=== PATIENT | female | born 1935 | race Caucasian/White ===

== ENCOUNTER → 2017-11-25 | Outpatient (CLI) | payer MEDICARE, OTHER ==
[~2017-11-25] MED LIST: ASPI-587 PO; CHOLESTEROL MED PO; LEVO75TA57 PO; METO25TA4 PO; MULT-974 PO; OMEG1CAP51 PO; OSCAL PO; PRAV10TA PO; THYROID PO
== END ==
LOC: WOUNDCARE 13:31
PROVIDERS: ATTEND Nurse Practitioner
DX: L97.212 Non-pressure chronic ulcer of right calf with fat layer exposed (principal); L03.115 Cellulitis of right lower limb
CPT/HCPCS: 11042

== ENCOUNTER → 2017-11-30 | Outpatient (CLI) | payer MEDICARE, OTHER | LOC: WOUNDCARE 09:54 | PROVIDERS: ATTEND Nurse Practitioner | DX: L97.212 Non-pressure chronic ulcer of right calf with fat layer exposed (principal); L03.115 Cellulitis of right lower limb | CPT/HCPCS: 11042 ==

== ENCOUNTER → 2017-12-07 | Outpatient (CLI) | payer MEDICARE, OTHER | LOC: WOUNDCARE 09:47 | PROVIDERS: ATTEND Nurse Practitioner | DX: L97.212 Non-pressure chronic ulcer of right calf with fat layer exposed (principal); L03.115 Cellulitis of right lower limb | CPT/HCPCS: 11042 ==

== ENCOUNTER → 2017-12-14 | Outpatient (CLI) | payer MEDICARE, OTHER | LOC: WOUNDCARE 09:57 | PROVIDERS: ATTEND Nurse Practitioner | DX: L97.212 Non-pressure chronic ulcer of right calf with fat layer exposed (principal); L03.115 Cellulitis of right lower limb | CPT/HCPCS: 99212 ==

== ENCOUNTER 2018-04-22 10:26 | Emergency (ER) | payer OTHER, MEDICARE ==
[~2018-04-22] VITALS: Ht 165.1 cm; Wt 59.0 kg
--- OUTSIDE RECORDS SUMMARY | 2018-04-22 10:32 | XMS REPORT | Continuity of Care Document ---
Author Author [facility] Organization [facility] Address Unknown Phone Unavailable Allergies Active Description Code Type Severity Reaction Onset Reported/Identified Relationship to Patient Clinical Status Yes No Known Drug Allergies [id number] Drug Allergy Unknown N/A 10/14/2014 Medications There is no data. Problems Date Dx Coded Attending Type Code Diagnosis Diagnosed By 10/15/2014 CALLUM PIERRE MD Ot 244.9 10/15/2014 CALLUM PIERRE MD Ot 272.4 10/15/2014 CALLUM PIERRE MD Ot 401.9 10/15/2014 CALLUM PIERRE MD Ot 716.90 10/15/2014 CALLUM PIERRE MD Ot 785.0 10/15/2014 CALLUM PIERRE MD Ot 786.50 11/26/2017 WOODY SOLIS APRN Ot L03.115 CELLULITIS OF RIGHT LOWER LIMB 11/26/2017 WOODY SOLIS APRN Ot L97.212 NON-PRESSURE CHRONIC ULCER OF RIGHT CALF 12/01/2017 WOODY SOLIS APRN Ot L03.115 CELLULITIS OF RIGHT LOWER LIMB 12/01/2017 WOODY SOLIS [employer] FRY Ot L97.212 NON-PRESSURE CHRONIC ULCER OF RIGHT CALF 12/01/2017 WOODY SOLIS [employer] FRY Ot L03.115 CELLULITIS OF RIGHT LOWER LIMB 12/01/2017 WOODY SOLIS APRN Ot L97.212 NON-PRESSURE CHRONIC ULCER OF RIGHT CALF 12/08/2017 WOODY SOLIS APRN Ot L03.115 CELLULITIS OF RIGHT LOWER LIMB 12/08/2017 WOODY SOLIS APRN Ot L97.212 NON-PRESSURE CHRONIC ULCER OF RIGHT CALF 12/15/2017 WOODY SOLIS APRN Ot L03.115 CELLULITIS OF RIGHT LOWER LIMB 12/15/2017 WOODY SOLIS [employer] FRY Ot L97.212 NON-PRESSURE CHRONIC ULCER OF RIGHT CALF 12/15/2017 WOODY SOLIS D[employer] FRY Ot L03.115 CELLULITIS OF RIGHT LOWER LIMB 12/15/2017 IRMASABAReyna Ng D[employer] FRY Ot L97.212 NON-PRESSURE CHRONIC ULCER OF RIGHT CALF 12/31/2017 IRMA WOODY Ng [employer] FRY Ot L03.115 CELLULITIS OF RIGHT LOWER LIMB 12/31/2017 IRMA WOODY R [employer] FRY Ot L97.212 NON-PRESSURE CHRONIC ULCER OF RIGHT CALF 12/31/2017 IRMA WOODY R [employer] FRY Ot L03.115 CELLULITIS OF RIGHT LOWER LIMB 12/31/2017 IRMA WOODY R [employer] FRY Ot L97.212 NON-PRESSURE CHRONIC ULCER OF RIGHT CALF 01/03/2018 IRMA WOODY R [employer] FRY Ot L03.115 CELLULITIS OF RIGHT LOWER LIMB 01/03/2018 IRMA WOODY R D[employer] FRY Ot L97.212 NON-PRESSURE CHRONIC ULCER OF RIGHT CALF 01/03/2018 IRMA WOODY R D[employer] FRY Ot L03.115 CELLULITIS OF RIGHT LOWER LIMB 01/03/2018 IRMA WOODY R [employer] FRY Ot L97.212 NON-PRESSURE CHRONIC ULCER OF RIGHT CALF 01/06/2018 WOODY SOLIS D[employer] FRY Ot L03.115 CELLULITIS OF RIGHT LOWER LIMB 01/06/2018 IRMA WOODY R D[employer] FRY Ot L97.212 NON-PRESSURE CHRONIC ULCER OF RIGHT CALF Procedures There is no data. Results There is no data. Encounters ACCT No. Visit Date/Time Discharge Status Pt. Type Provider Facility Loc./Unit Complaint [id number] 12/14/2017 09:57:00 12/14/2017 23:59:59 CLS Outpatient WOODY SOLIS APRN [facility] [id number] 12/07/2017 09:47:00 12/07/2017 23:59:59 CLS Outpatient WOODY SOLIS [employer] FRY [facility] [id number] 11/30/2017 09:54:00 11/30/2017 23:59:59 CLS Outpatient WOODY SOLIS [employer] FRY [facility] [id number] 11/25/2017 13:31:00 11/25/2017 23:59:59 CLS Outpatient WOODY SOLIS [employer] FRY [facility] [id number] 10/14/2014 12:45:00 10/15/2014 18:32:00 DIS Inpatient IGNACIO MCCORMICK, CALLUM Willson [id number] 10/20/2014 11:08:39 ACT Document Registration
[2018-04-22] MEDS ORDERED: fentaNYL INJECTION 100 MCG/2 ML AMP IVP ONE ×2 (10:45→11:45)
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
[2018-04-22 10:52] LABS: HEMOGLOBIN 13.2 G/DL (11.5-16.0); MEAN PLATELET VOLUME 11.2 FL (7.4-10.4); RED BLOOD COUNT 4.21 10^6/uL (4.35-5.85); RED CELL DISTRIBUTION WIDTH 13.7 % (10.0-14.5); WHITE BLOOD COUNT 18.1 10^3/uL (4.3-11.0)
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
[2018-04-22] MEDS ORDERED: IOHEXOL 350 MG/ML 100 ML (OMNIPAQUE 350) VIAL IV ONE (11:00)
[2018-04-22] MEDS ORDERED: NS 250 ML (IVPB) BAG IV ONE (11:00)
[2018-04-22 11:04] LABS: ALANINE AMINOTRANSFERASE 37 U/L (0-55); ALBUMIN 3.6 GM/DL (3.2-4.5); ALKALINE PHOSPHATASE 83 U/L (40-136); BILIRUBIN,DIRECT 0.4 MG/DL (0.0-0.3); BILIRUBIN,INDIRECT 0.8 MG/DL; BILIRUBIN,TOTAL 1.2 MG/DL (0.1-1.0); BUN/CREATININE RATIO 22; CALCIUM 9.1 MG/DL (8.5-10.1); CARBON DIOXIDE 24 MMOL/L (21-32); CHLORIDE 107 MMOL/L (98-107); CREATININE SERUM 0.72 MG/DL (0.60-1.30); GFR ESTIMATED > 60; GLUCOSE 134 MG/DL (70-105); POTASSIUM 3.8 MMOL/L (3.6-5.0); SODIUM 140 MMOL/L (135-145); TOTAL PROTEIN 6.1 GM/DL (6.4-8.2)
[2018-04-22] MEDS ORDERED: ONDANSETRON 4 MG/2 ML (SDV) Z0FRAN ONE ×2 (11:05→13:16)
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
[2018-04-22] MEDS ORDERED: KETOROLAC 30 MG/ML VIAL IVP ONE (11:45)
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
[2018-04-22 12:27] LABS: BILIRUBIN,URINE NEGATIVE (NEGATIVE); CLARITY,URINE CLEAR; COLOR,URINE YELLOW; GLUCOSE, URINE (UA) NEGATIVE (NEGATIVE); KETONES,URINE NEGATIVE (NEGATIVE); LEUKOCYTE ESTERASE ,URINE 1+ (NEGATIVE); NITRITE,URINE NEGATIVE (NEGATIVE); PH,URINE 8 (5-9); PROTEIN,URINE NEGATIVE (NEGATIVE); UROBILINOGEN,URINE NORMAL (NORMAL)
[2018-04-22 12:39] LABS: BACTERIA,URINE TRACE /HPF; SQUAMOUS EPITHELIAL CELL,UR 0-2 /HPF; WBC,URINE RARE /HPF
[2018-04-22] MEDS ORDERED: LIDOCAINE 2% 20 ML (XYLOCAINE) VIAL INJ ONE (13:15)
[2018-04-22] MEDS ORDERED: ACETAMINOPHEN 500 MG TAB (TYLENOL) PO ONE (13:15)
[2018-04-22] MEDS ORDERED: LIDOCAINE BOLUS 100 MG/5 ML (IMS) SYR ONE (13:20)
[2018-04-22] MEDS ORDERED: NS (IVPB) 100 ML ONE ×2 (13:20→14:07)
[2018-04-22] MEDS ORDERED: ONDANSETRON 4 MG/2 ML (SDV) Z0FRAN IVP ONE ×2 (13:30→14:30)
[2018-04-22] MEDS ORDERED: NS IV 1000 ML 1,000 ML IV SCH (14:15)
[2018-04-22] MEDS ORDERED: LIDOCAINE 1% INJ 20 ML 20 ML VIAL INJ ONE (14:15)
[2018-04-22 14:50] VITALS: BP 127/64
== END 2018-04-22 14:50 | disposition short-term general hospital (02) ==
LOC: EDUNIT# 10:26 → ER 10:28
DX: S32.502A Unspecified fracture of left pubis, initial encounter for closed fracture (principal); S32.10XA Unspecified fracture of sacrum, initial encounter for closed fracture; S36.039A Unspecified laceration of spleen, initial encounter; S27.321A Contusion of lung, unilateral, initial encounter; E78.00 Pure hypercholesterolemia, unspecified; E03.9 Hypothyroidism, unspecified; Z79.82 Long term (current) use of aspirin; Z82.49 Family history of ischemic heart disease and other diseases of the circulatory system; Z90.710 Acquired absence of both cervix and uterus; V43.52XA Car driver injured in collision with other type car in traffic accident, initial encounter
CPT/HCPCS: 36415; 70450; 71045; 71260; 72125; 72131; 72170; 74177; 80048; 80076; 80320; 81000; 85027; 86850; 86900; 86901; 93041; 96361; 96374; 96375; 96376

== ENCOUNTER 2022-04-24 20:35 | Emergency (ER) | payer MEDICARE, OTHER ==
[~2022-04-24] VITALS: Ht 160 cm; Wt 61.2 kg
--- NOTE | 2022-04-24 21:16 | ED Upper Extremity ---
General Chief Complaint: Upper Extremity Stated Complaint: R MIDDLE FINGER SWOLLEN, R ARM PAIN, FELL Source: patient Exam Limitations: no limitations History of Present Illness Date Seen by Provider: Apr 24, 2022 Time Seen by Provider: 21:14 Initial Comments Patient is a 86-year-old female who presents the ED with right hand pain. Mike liang fell 30 minutes ago. She was walking on the sidewalk after getting out of the car when she tripped and fall landing on her hands and knees. She denies syncope or loss of consciousness. She has bruising swelling to the right middle finger with pain with movement. She denies hitting her head, neck pain, or on blood thinners. She denies of any chest pain, abdominal pain or back pain. Only complaint is right middle finger pain. She did suffer abrasion to her right anterior knee but denies of any pain or discomfort with walking. She has been walking according to family at bedside. Allergies and Home Medications Allergies Coded Allergies: No Known Drug Allergies (Unverified , 10/14/14) Patient Home Medication List Home Medication List Reviewed: Yes Aspirin (Aspir 81) 81 Mg Tablet.dr, 81 MG PO DAILY, (Reported) Entered as Reported by: YANI WARE on 10/14/14 1158 Docosahexanoic Acid/Epa (Fish Oil 1,000 Mg Softgel) 1 Cap Capsule, 1 CAP PO UD Prescribed by: ED MARS on 10/14/14 162 Levothyroxine Sodium (Synthroid) 75 Mcg Tablet, 1 EACH PO DAILY Prescribed by: ED MARS on 10/14/14 162 Metoprolol Succinate (Toprol Xl) 25 Mg Tab.sr.24h, 25 MG PO DAILY Prescribed by: CALLUM PIERRE on 10/15/14 1701 Multivitamin (Multi Vitamin Daily) 1 Each Tablet, 1 EACH PO DAILY Prescribed by: ED MARS on 10/14/14 162 Pravastatin Sodium (Pravastatin Sodium) 10 Mg Tablet, 20 MG PO HS Prescribed by: ED MARS on 10/14/14 1640 [Oscal] , 2 TAB PO DAILY Prescribed by: ED MARS on 10/14/14 162 Review of Systems Constitutional: No chills, No diaphoresis, No malaise, No weakness EENTM: No blurred vision, No double vision Respiratory: No cough, No dyspnea on exertion Cardiovascular: No chest pain Gastrointestinal: No abdominal pain, No diarrhea Genitourinary: No decreased output, No discharge Musculoskeletal: joint pain, joint swelling, muscle pain Skin: change in color All Other Systems Reviewed Negative Unless Noted: Yes Past Tpmjjwk-Tbznjy-Uwrhxl Hx Immunizations Up To Date Tetanus Booster (TDap): Less than 5yrs PED Vaccines UTD: No Seasonal Allergies Seasonal Allergies: No Past Medical History Surgeries: Yes (ARTHROSCOPY) Bladder Surgery, Hysterectomy Respiratory: No Cardiac: No High Cholesterol Neurological: No Reproductive Disorders: No 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 0.00oz. 58.389187ht; 21.09 BMI Method:Stated General Appearance: WD/WN, no apparent distress HEENT: PERRL/EOMI, normal ENT inspection, TMs normal Neck: non-tender, full range of motion, supple, normal inspection Cardiovascular: regular rate, rhythm, no edema, no gallop, no JVD Respiratory: chest non-tender, lungs clear, normal breath sounds, no respiratory distress Gastrointestinal: normal bowel sounds, non tender, soft, no organomegaly Back: normal inspection, no CVA tenderness, no vertebral tenderness Shoulder: normal inspection, non-tender, no evidence of injury Elbow/Forearm: normal inspection, non-tender, no evidence of injury, normal ROM Wrist: Yes normal inspection, Yes non-tender, Yes no evidence of injury, Yes normal ROM Hand: limited ROM (Right middle finger at the PIP joint.), stiffness (Right middle pip joint), swelling 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, no motor/sensory deficits, alert, normal mood/affect, oriented x 3 Progress/Results/Core Measures Results/Orders My Orders Orders - TERESO KO Hand, Right, 3 Views (04/24/22 21:11) Wrist, Right, 3 Views Or More (04/24/22 21:11) Acetaminophen Tablet/Caplet (Tylenol T (04/24/22 21:45) Medications Given in ED Current Medications Medications Dose Ordered Sig/Marce Route Start Time Stop Time Status Last Admin Dose Admin Acetaminophen 650 mg ONCE ONCE PO 04/24/22 21:45 04/24/22 21:46 DC 04/24/22 21:54 650 MG Vital Signs/I&O 04/24/22 20:50 Temp 36.7 Pulse 63 Resp 20 B/P (MAP) 151/70 (97) Pulse Ox 98 Departure Communication (PCP) Degenerative type findings with small cortical irregularity at the base of the third proximal phalanx. This could represent avulsion fracture of indeterminate age. Does have point tenderness with swelling or bruising. We will treat as a potential fracture. Patient was placed in a finger splint. Was given Tylenol. Recommend Tylenol to help with pain. Keep the finger in a splint. Orthopedic follow-up in 7 to 10 days for reevaluation. If any worsening symptoms return back to ED for further evaluation. Discussed with patient and family that this will heal without any surgical intervention. Discussed with family that this swelling and bruising may take 2 to 3 weeks to improve. X-ray of the right wrist was negative. She has no evidence of trauma to the head. She has no knee tenderness but does have abrasion to the right knee. Up-to-date on her tetanus. She is able to ambulate and walk without much pain or discomfort. She has no cervical, thoracic or lumbar midline tenderness. Patient is at her current normal baseline. Impression Primary Impression: Finger fracture Disposition: 01 HOME, SELF-CARE Condition: Stable Departure-Patient Inst. Decision time for Depature: 22:06 Referrals: MELITA MARCOS MD (PCP/Family) Primary Care Physician ANDRES WILLIAMOSN MD Patient Instructions: Finger Fracture ED Add. Discharge Instructions: Recommend Tylenol for pain. Ice 3-4 times a day for the next 3 to 4 days. Gwyn tape to allow healing. All discharge instructions reviewed with patient and/or family. Voiced understanding. TERESO KO Apr 24, 2022 21:15
[2022-04-24] MEDS ORDERED: ACETAMINOPHEN 325 MG TABLET PO ONE (21:45)
--- NOTE | 2022-04-24 21:54 | Diagnostic Imaging Report ---
INDICATION: Right wrist pain. EXAMINATION: AP, oblique and lateral views of the right wrist were obtained. FINDINGS: Note is made of diffuse osseous demineralization with ulnar minus deformity. No acute fracture or dislocation is identified. No abnormal lytic or sclerotic focus is seen, and there is no radiopaque foreign body. IMPRESSION: No acute abnormality. Dictated by: Dictated on workstation # [id number]
--- NOTE | 2022-04-24 21:55 | Diagnostic Imaging Report ---
INDICATION: Right hand pain. EXAMINATION: AP, oblique and lateral views of the right hand were obtained. FINDINGS: There is a small ossific fragment at the base of the 3rd proximal phalanx which could represent avulsion injury of indeterminate age. Otherwise, there is diffuse osseous demineralization and mild diffuse narrowing of interphalangeal joints. No focal lytic or sclerotic lesion is identified. IMPRESSION: Degenerative-type findings with small cortical irregularity at base of 3rd proximal phalanx. This could represent avulsion fracture of indeterminate age and correlation to site of pain would be useful. Dictated by: Dictated on workstation # [id number]
[2022-04-24 22:24] VITALS: BP 131/75
== END 2022-04-24 22:25 | disposition home or self-care (01) ==
LOC: EDUNIT# 20:35 → ER 20:38
DX: S62.612A Displaced fracture of proximal phalanx of right middle finger, initial encounter for closed fracture (principal); S80.211A Abrasion, right knee, initial encounter; W01.0XXA Fall on same level from slipping, tripping and stumbling without subsequent striking against object, initial encounter; Y93.01 Activity, walking, marching and hiking; Y92.480 Sidewalk as the place of occurrence of the external cause
CPT/HCPCS: 73110; 73130

== ENCOUNTER 2022-11-20 07:24 | Emergency (ER) | payer MEDICARE, OTHER ==
[~2022-11-20] VITALS: Ht 160 cm; Wt 62.0 kg
--- NOTE | 2022-11-20 08:10 | ED Lower Extremity ---
General Chief Complaint: Trauma-Non Activation Stated Complaint: FALL | RT HIP PAIN Nursing Triage Note: SEE TRIAGE Source: patient, family, old records Exam Limitations: clinical condition (Base line demintia) ([facility]) History of Present Illness Date Seen by Provider: Nov 20, 2022 Time Seen by Provider: 07:28 () Initial Comments Mrs. Tony is an 87yo F with PMH of HTN, HLD and dementia who presents to the ED today via EMS with complaint of constant non-radiating right hip pain following an unwitnessed fall which occurred at her assisted living facility early this am. Pt states that she cannot recall the specific circumstances which precipitated her fall, she activated her neck worn call device, attendants helped her up and assisted her in walking down the craft for a cup of coffee, her daughters Wanda & Geneva responded to a call regarding the incident and attempted to walk Mrs. Tony to the vehicle for medical evaluation. Her daughters observed that attempting to walk had become very painful and elected to call EMS for transport. During exam both the Pt and her daughters contributed to the history due in part to Pt's baseline dementia which the daughters also confirm is unchanged. Pt does not recall dizziness or LOC prior to her fall and does not know if she hit her head. She does not report any pain from her head, or changes in vision or hip pain with passive hip articulation. She only notes pain when palpating her right ilium. Denies N/V/F/C. Location Injury Occurred: [facility] Onset: this morning Pain/Injury Location: right hip Method of Injury: fell Modifying Factors: Improves With Immobilization ([facility]) Allergies and Home Medications Allergies Coded Allergies: No Known Drug Allergies (Unverified , 10/14/14) Patient Home Medication List Home Medication List Reviewed: Yes (JANNET FERRARI MD) Aspirin (Aspir 81) 81 Mg Tablet.dr, 81 MG PO DAILY, (Reported) Entered as Reported by: YANI WARE on 10/14/14 1158 Docosahexanoic Acid/Epa (Fish Oil 1,000 Mg Softgel) 1 Cap Capsule, 1 CAP PO UD Prescribed by: ED MARS on 10/14/14 162 Levothyroxine Sodium (Synthroid) 75 Mcg Tablet, 1 EACH PO DAILY Prescribed by: ED MARS on 2/1/15 1627 Metoprolol Succinate (Toprol Xl) 25 Mg Tab.sr.24h, 25 MG PO DAILY Prescribed by: CALLUM PIERRE on 10/15/14 170 Multivitamin (Multi Vitamin Daily) 1 Each Tablet, 1 EACH PO DAILY Prescribed by: ED MARS on 10/14/14 162 Pravastatin Sodium (Pravastatin Sodium) 10 Mg Tablet, 20 MG PO HS Prescribed by: ED MARS on 10/14/14 1640 Tramadol HCl (Tramadol HCl) 50 Mg Tablet, 25-50 MG PO TID PRN for PAIN BREAKTROUGH Prescribed by: JANNET ARTHUR on 11/20/22 0959 [Oscal] , 2 TAB PO DAILY Prescribed by: ED MARS on 10/14/141626 Review of Systems Constitutional: No chills, No dizziness, No fever EENTM: No hearing loss, No blurred vision Respiratory: No cough, No short of breath Cardiovascular: No chest pain, No palpitations Gastrointestinal: No abdominal pain, No nausea, No vomiting Genitourinary: No dysuria, No pain Musculoskeletal: No back pain; joint pain; No muscle pain, No muscle stiffness Skin: No change in color, No lesions, No rash Psychiatric/Neurological: Denies Anxiety, Denies Depressed, Denies Numbness, Denies Paresthesia, Denies Tremors, Denies Weakness ([facility]) Past Xtnpahz-Awvtvl-Ppekpd Hx Patient Social History Tobacco Use?: No Substance use?: No Alcohol Use?: No Pt feels they are or have been: No ([facility]) Immunizations Up To Date Tetanus Booster (TDap): Less than 5yrs PED Vaccines UTD: No Influenza Vaccine Up-to-Date: Yes; Up-to-Date First/Initial COVID19 Vaccinat: YES Second COVID19 Vaccination Ascencion: YES ([facility]) Seasonal Allergies Seasonal Allergies: No ([facility]) Past Medical History Surgery/Hospitalization HX: GB, ARTHOSCOPY KNEE, HYST, BLADDER SLING, SPLEEN Surgeries: Yes (ARTHROSCOPY) Bladder Surgery, Hysterectomy Respiratory: No Cardiac: No High Cholesterol Neurological: No Reproductive Disorders: No 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 Gastrointestinal: No Musculoskeletal: No Endocrine: Yes Hypothyroidsim Cataract Cancer: No Psychosocial: No Integumentary: No Blood Disorders: No ([facility]) Family Medical History Alzheimer's disease 19 MOTHER Diabetes mellitus G8 BROTHER Hypertension daughters Myocardial infarction 19 FATHER Thyroid disease daughters daughters Physical Exam Vital Signs Vital Signs - First Documented 11/20/22 11/20/22 07:25 10:05 Temp 36.6 Pulse 65 Resp 20 B/P (MAP) 191/80 (117) Pulse Ox 99 (JANNET FERRARI MD) Vital Signs Capillary Refill : Less Than 3 Seconds ([facility]) Height, Weight, BMI Height: 5'5.00" Weight: 130lbs. 0.00oz. 58.323369sk; 24.00 BMI Method:Stated General Appearance: WD/WN, no apparent distress HEENT: PERRL/EOMI, pharynx normal Neck: full range of motion, supple, normal inspection Cardiovascular: regular rate, rhythm, no edema Respiratory: chest non-tender, lungs clear, normal breath sounds, no respiratory distress, no accessory muscle use Gastrointestinal: normal bowel sounds, non tender, soft, no organomegaly Hips: bilateral hip normal range of motion, bilateral hip no evidence of injury; right hip bone tenderness, right hip pain, right hip soft tissue tenderness Legs: bilateral leg non-tender, bilateral leg normal inspection, bilateral leg normal range of motion, bilateral leg no evidence of injury Knees: bilateral knee non-tender, bilateral knee normal inspection, bilateral knee normal range of motion, bilateral knee no evidence of injury Ankles: bilateral ankle non-tender, bilateral ankle normal inspection, bilateral ankle normal range of motion, bilateral ankle no evidence of injury Feet: bilateral foot non-tender, bilateral foot normal inspection, bilateral foot normal range of motion, bilateral foot no evidence of injury Neurologic/Tendon: normal sensation, normal motor functions 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, no motor/sensory deficits, alert, normal mood/affect Skin: normal color, warm/dry Lymphatic: no adenopathy ([facility]) Progress/Results/Core Measures Results/Orders Lab Results Laboratory Tests Test 11/20/22 07:52 Range/Units Urine Color YELLOW Urine Clarity CLEAR Urine pH 7.0 5-[address] [place] <=1.005 1.016-1.022 Urine Protein NEGATIVE NEGATIVE Urine Glucose (UA) NEGATIVE NEGATIVE Urine Ketones NEGATIVE NEGATIVE Urine Nitrite NEGATIVE NEGATIVE Urine Bilirubin NEGATIVE NEGATIVE Urine Urobilinogen 0.2 < = 1.0 MG/DL Urine Leukocyte Esterase NEGATIVE NEGATIVE Urine RBC (Auto) NEGATIVE NEGATIVE Urine RBC NONE /HPF Urine WBC NONE /HPF Urine Squamous Epithelial Cells NONE /HPF Urine Crystals NONE /LPF Urine Bacteria NEGATIVE /HPF Urine Casts NONE /LPF Urine Mucus NEGATIVE /LPF Urine Culture Indicated NO (JANNET FERRARI MD) My Orders Orders - JANNET FERRARI MD Ua Culture If Indicated (11/20/22 08:18) Pelvis With Right Hip 2-3views (11/20/22 08:18) Acetaminophen Tablet (Tylenol Tablet) (11/20/22 10:00) (JANNET FERRARI MD) Vital Signs/I&O 11/20/22 11/20/22 07:25 10:05 Temp 36.6 Pulse 65 67 Resp 20 20 B/P (MAP) 191/80 (117) 162/72 Pulse Ox 99 (JANNET FERRARI MD) Blood Pressure Mean: 117 Progress Progress Note : Progress Note Patient and family were interviewed and patient was examined by me personally along with MS 4. X-rays were obtained of the right hip and pelvis. They were reviewed by me and no fractures or dislocations were appreciated by my interpretation. The radiologist's interpretation was also reviewed as noted below. Urinalysis was also unremarkable. We discussed pain management. She has not had a recent dose of Tylenol. Tylenol was administered. A prescription was provided for tramadol for breakthrough pain. I discussed discharge instructions with patient and family. Patient denied injury of any other body part including head or neck. She had no head or neck tenderness on palpation. (JANNET FERRARI MD) Diagnostic Imaging Diagonstic Imaging: Xray Plain Films/CT/US/NM/MRI: pelvis, hip Comments X-rays of the hip and pelvis were reviewed by me and reports reviewed. See report below: NAME: IVONNE TONY [facility] REC#: [id number] PT STATUS: DEP ER : [id number] PHYSICIAN: JANNET FERRARI MD ADMIT DATE: 11/20/22/ER Signed Date of Exam:11/20/22 PELVIS WITH RIGHT HIP 2-3VIEWS INDICATION: Fall, right hip pain. AP pelvis and AP and lateral views of the right hip are obtained. No fracture or acute bony abnormality is seen. Joint spaces appear unremarkable. IMPRESSION: Negative pelvis and right hip. Dictated by: Dictated on workstation # [id number] Dict: 11/20/22918 Trans: 11/20/[address] [facility] [id number] Interpreted by: BOBO CAMACHO MD Electronically signed by: BOBO CAMACHO MD 11/20/22 110 (JANNET FERRARI MD) Departure Impression Primary Impression: Right hip pain Disposition: 01 HOME, SELF-CARE Condition: Improved Departure-Patient Inst. Decision time for Depature: 09:51 (JANNET FERRARI MD) Referrals: MELITA MARCOS MD (PCP/Family) Primary Care Physician Patient Instructions: Hip Pain ED Add. Discharge Instructions: Continue with Tylenol doses as usual. You may ice sore areas in 20-minute intervals to help with pain. For pain not controlled by Tylenol, use tramadol (Ultram) as prescribed. Use tramadol with caution as it may cause drowsiness. You may start with 1/2 tablet as a lower, more cautious dose. Tramadol can also cause constipation, so you may wish to use a stool softener while on tramadol. Gradually increase level of activity as pain allows. Ambulation should be supervised initially. Return to the emergency room if there are worsening symptoms despite following these instructions. If pain is not improving in a satisfactory fashion, follow- up with your primary care provider next week. All discharge instructions reviewed with patient and/or family. Voiced understanding. Scripts Tramadol HCl (Tramadol HCl) 50 Mg Tablet 25-50 MG PO TID PRN for PAIN VIJAYA, #10 TAB Prov: JANNET FERRARI MD 11/20/22 Medical Student Attestation and Attending Note: I have personally interviewed and examined this patient along with Dinora Kaiser MS4. I have reviewed student documentation including history, physical, and assessments. I agree with the documentation except where otherwise noted. Exam: General: Alert, oriented to baseline with dementia, no acute distress, well developed HEENT: Normocephalic and atraumatic, no head or neck tenderness, no evidence of injury Heart: Regular rate and rhythm without murmur Lungs: Clear to auscultation bilaterally with normal effort Abdomen: Soft, nontender, nondistended, normal bowel sounds Ext: Tenderness over the right lateral hip right lateral hip in the hip joint. No significant pain with rotation of the hip Neuropsych: Alert, oriented to baseline, no focal deficits Skin: Warm and dry without rashes (JANNET FERRARI MD) Copy Copies To 1: MELITA MARCOS MD, DAVID Nov 20, 2022 08:10 JANNET FERRARI MD Nov 20, 2022 09:56
[2022-11-20 08:25] LABS: BILIRUBIN,URINE NEGATIVE (NEGATIVE); CLARITY,URINE CLEAR; COLOR,URINE YELLOW; GLUCOSE, URINE (UA) NEGATIVE (NEGATIVE); KETONES,URINE NEGATIVE (NEGATIVE); LEUKOCYTE ESTERASE ,URINE NEGATIVE (NEGATIVE); NITRITE,URINE NEGATIVE (NEGATIVE); PROTEIN,URINE NEGATIVE (NEGATIVE)
[2022-11-20 08:37] LABS: BACTERIA,URINE NEGATIVE /HPF
--- NOTE | 2022-11-20 09:21 | Diagnostic Imaging Report ---
INDICATION: Fall, right hip pain. AP pelvis and AP and lateral views of the right hip are obtained. No fracture or acute bony abnormality is seen. Joint spaces appear unremarkable. IMPRESSION: Negative pelvis and right hip. Dictated by: Dictated on workstation # [id number]
[2022-11-20] MEDS ORDERED: TRAM50TA3 PO (09:54)
[2022-11-20] MEDS ORDERED: ACETAMINOPHEN 500 MG TAB (TYLENOL) PO ONE (10:00)
[2022-11-20 10:05] VITALS: BP 162/72
== END 2022-11-20 10:31 | disposition home or self-care (01) ==
LOC: EDUNIT# 07:24 → ER 07:26
DX: M25.551 Pain in right hip (principal); F03.90 Unspecified dementia, unspecified severity, without behavioral disturbance, psychotic disturbance, mood disturbance, and anxiety; W19.XXXA Unspecified fall, initial encounter; Y92.129 Unspecified place in nursing home as the place of occurrence of the external cause
CPT/HCPCS: 51702; 81000